=== PATIENT | female | born 1975 | race Caucasian/White ===

== ENCOUNTER 2017-09-16 19:14 | Emergency (ER) | payer BC ==
[~2017-09-16] VITALS: Ht 172.7 cm; Wt 59.0 kg
[~2017-09-16 19:14] MED LIST: ALPRAZOLAM 0.50.5 MG PO; HYDROCODONE PO; ULTRAM50 MG PO
[2017-09-16 19:47] LABS: URINE BILIRUBIN NEGATIVE (Negative); URINE BLOOD TRACE (Negative); URINE CLARITY CLEAR; URINE COLOR YELLOW; URINE GLUCOSE-RANDOM NEGATIVE (Negative); URINE LEUKOCYTES-REFLEX 1+ (Negative); URINE PROTEIN TRACE (Negative); URINE SPECIFIC GRAVITY 1.025 (1.005-1.030); URINE UROBILINOGEN 0.2 E.U./dl (0.2-1.0)
[2017-09-16 19:54] LABS: URINE KETONES 3+ (Negative); URINE NITRITE-REFLEX POSITIVE (Negative)
[2017-09-16 19:59] LABS: HEMATOCRIT 38.3 % (37.0-47.0); HEMOGLOBIN 12.9 gm/dL (12.0-15.0); MCH 32.8 pg (26.0-34.0); MCHC 33.6 g/dL (28.0-37.0); MCV 97.7 fL (80.0-100.0); MPV 8.6 fl. (7.2-11.1); NUCLEATED RBCS 0 /100WBC; PLATELET COUNT* 255 thou/uL (150-400); RBC 3.92 mil/uL (4.20-5.00); RDW-CV 12.4 % (10.5-14.5); WBC 16.8 thou/uL (4.0-11.0)
[2017-09-16 20:04] LABS: BACTERIA-REFLEX >30 Many /HPF (None Seen); MUCUS >6 Heavy strn/LPF (None Seen); SQUAMOUS >10 Many /LPF (0-3); URINE WBC-REFLEX 6-15 Few /HPF (0-5)
[2017-09-16 20:05] LABS: CASTS None Seen /LPF (None Seen); CRYSTALS None Seen /LPF (None Seen); URINE RBC 0-2 Rare /HPF (0-2)
[2017-09-16 20:08] LABS: CALCIUM 10.1 mg/dL (8.5-10.1); CREATININE 0.8 mg/dL (0.6-1.3); POTASSIUM 3.8 mmol/L (3.5-5.1)
[2017-09-16 20:13] LABS: ALBUMIN 3.5 g/dL (3.4-5.0); TOTAL BILIRUBIN 0.4 mg/dL (<0.1-1.0); TOTAL PROTEIN 7.5 g/dL (6.4-8.2)
[2017-09-16 20:27] LABS: ABSOLUTE LYMPHOCYTES 0.3 thou/uL (0.8-5.3); ABSOLUTE MONOCYTES 1.2 thou/uL (0.0-1.2); ABSOLUTE NEUTROPHILS 15.3 thou/uL (1.6-8.1); PLATELET ESTIMATE ADEQUATE
[2017-09-16] MEDS ORDERED: IBUPROFEN 600600 M1 PO (21:59)
[2017-09-16] MEDS ORDERED: ZOFRAN ODT4 MG PO (21:59)
[2017-09-16] MEDS ORDERED: CIPRO500 MG PO (21:59)
[2017-09-16 22:40] VITALS: BP 95/48
--- NOTE | 2017-09-17 11:29 | EKG ---
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 Cano : 1975 Requested By: Don Interiano Order Number: [id number] MD: Jorge Holguin Measurements Intervals [place] Rate: 98 P: 69 PA: 173 QRS: 70 QRSD: 100 T: 32 QT: 323 QTc: 413 Interpretive Statements Sinus rhythm Biatrial enlargement RSR' in V1 or V2, probably normal variant Compared to ECG 03/09/2012 11:26:48 RSR' in V1 or V2 now present Electronically Signed On 09-17-2017 11:28:53 CDT by Jorge Holguin [email or web address] <ELECTRONICALLY SIGNED> By: Jorge Holguin MD, [facility] 09/17/17 [id number] Jorge Holguni MD, [facility] /EPI
== END 2017-09-16 22:40 | disposition home or self-care (01) ==
LOC: M.ERS 19:14
PROVIDERS: Physician Assistant
DX: N39.0 Urinary tract infection, site not specified (principal); N12 Tubulo-interstitial nephritis, not specified as acute or chronic; F17.200 Nicotine dependence, unspecified, uncomplicated; Z90.710 Acquired absence of both cervix and uterus

== ENCOUNTER 2019-05-25 13:30 | Emergency (ER) | payer BC ==
[~2019-05-25] VITALS: Ht 172.7 cm; Wt 61.2 kg
[~2019-05-25 13:30] MED LIST changes: +CIPRO500 MG PO; +IBUPROFEN 600600 M1 PO; +ZOFRAN ODT4 MG PO
[2019-05-25] MEDS ORDERED: BACTRIM DS TAB1 EAC1 PO ×2 (13:51→16:26)
[2019-05-25 14:33] LABS: ABSOLUTE BASOPHILS 0.1 thou/uL (0.0-0.2); ABSOLUTE EOSINOPHILS 0.1 thou/uL (0.0-0.7); ABSOLUTE LYMPHOCYTES 1.7 thou/uL (0.8-5.3); ABSOLUTE MONOCYTES 0.6 thou/uL (0.0-1.2); ABSOLUTE NEUTROPHILS 6.9 thou/uL (1.6-8.1); EOSINOPHILS 0.9 %; HEMATOCRIT 41.7 % (37.0-47.0); HEMOGLOBIN 14.3 gm/dL (12.0-15.0); LYMPHOCYTES 18.1 %; MCH 34.2 pg (26.0-34.0); MCHC 34.2 g/dL (28.0-37.0); MCV 99.9 fL (80.0-100.0); MPV 9.3 fl. (7.2-11.1); NUCLEATED RBCS 0 /100WBC; PLATELET COUNT* 251 thou/uL (150-400); RBC 4.18 mil/uL (4.20-5.00); RDW-CV 12.8 % (10.5-14.5); WBC 9.4 thou/uL (4.0-11.0)
[2019-05-25 14:40] LABS: CALCIUM 10.7 mg/dL (8.5-10.1); CREATININE 0.7 mg/dL (0.6-1.3); POTASSIUM 4.7 mmol/L (3.5-5.1)
[2019-05-25 14:44] LABS: ALBUMIN 3.8 g/dL (3.4-5.0); TOTAL BILIRUBIN 0.4 mg/dL (<0.1-1.0); TOTAL PROTEIN 7.1 g/dL (6.4-8.2)
[2019-05-25 14:56] LABS: URINE BILIRUBIN NEGATIVE (Negative); URINE BLOOD 2+ (Negative); URINE CLARITY CLEAR; URINE COLOR YELLOW; URINE GLUCOSE-RANDOM NEGATIVE (Negative); URINE KETONES 1+ (Negative); URINE LEUKOCYTES-REFLEX NEGATIVE (Negative); URINE NITRITE-REFLEX NEGATIVE (Negative); URINE PROTEIN NEGATIVE (Negative); URINE SPECIFIC GRAVITY >= 1.030 (1.005-1.030); URINE UROBILINOGEN 0.2 E.U./dl (0.2-1.0)
[2019-05-25 15:07] LABS: BACTERIA-REFLEX 1-9 Few /HPF (None Seen); MUCUS >6 Heavy strn/LPF (None Seen); SQUAMOUS 4-10 Moderate /LPF (0-3); URINE WBC-REFLEX 0-5 Rare /HPF (0-5)
[2019-05-25 15:08] LABS: CASTS None Seen /LPF (None Seen); CRYSTALS None Seen /LPF (None Seen)
[2019-05-25] MEDS ORDERED: NORCO 5-325 TA1 EAC1 PO (16:26)
[2019-05-25] MEDS ORDERED: ONDANSETRON HCL4 M2 PO (16:26)
[2019-05-25 16:36] VITALS: BP 120/60
== END 2019-05-25 16:36 | disposition home or self-care (01) ==
LOC: M.ERS 13:30
PROVIDERS: Nurse Practitioner Family
DX: N20.0 Calculus of kidney (principal); N39.0 Urinary tract infection, site not specified; K76.89 Other specified diseases of liver; N28.1 Cyst of kidney, acquired; R11.2 Nausea with vomiting, unspecified; Z86.73 Personal history of transient ischemic attack (TIA), and cerebral infarction without residual deficits; Z90.710 Acquired absence of both cervix and uterus